=== PATIENT | female | born 2000 | race Two or more races ===

== ENCOUNTER 2018-01-09 23:47 | Emergency (ER) | payer OTHER ==
[~2018-01-09] VITALS: Ht 160 cm; Wt 60.8 kg
== END 2018-01-10 04:11 | disposition home or self-care (01) ==
LOC: ER 23:47
DX: M54.5 Low back pain (principal)

== ENCOUNTER 2020-01-27 16:58 | Emergency (ER) | payer OTHER ==
[~2020-01-27] VITALS: Ht 160 cm; Wt 62.6 kg
[2020-01-27] MEDS ORDERED: NITROFURANTOIN100 MG PO (21:09)
== END 2020-01-27 21:26 | disposition home or self-care (01) ==
LOC: ER 16:58
DX: O23.32 Infections of other parts of urinary tract in pregnancy, second trimester (principal); O26.892 Other specified pregnancy related conditions, second trimester; R10.2 Pelvic and perineal pain; Z3A.16 16 weeks gestation of pregnancy

== ENCOUNTER → 2020-03-26 | Outpatient (CLI) | payer OTHER ==
[~2020-03-26] MED LIST: NITROFURANTOIN100 MG PO
== END | disposition home or self-care (01) ==
LOC: PRENATAL 08:56
PROVIDERS: ATTEND Obstetrics & Gynecology Maternal & Fetal Medicine
DX: O35.0XX1 Maternal care for (suspected) central nervous system malformation in fetus, fetus 1 (principal); O35.3XX1 Maternal care for (suspected) damage to fetus from viral disease in mother, fetus 1; O98.512 Other viral diseases complicating pregnancy, second trimester; Z36.89 Encounter for other specified antenatal screening; Z3A.23 23 weeks gestation of pregnancy

== ENCOUNTER 2020-04-26 14:39 | Outpatient (CLI) | payer OTHER | END 2020-04-27 09:59 | disposition home or self-care (01) | LOC: OBS/DEL 14:39 | PROVIDERS: ATTEND Obstetrics & Gynecology | DX: O26.842 Uterine size-date discrepancy, second trimester (principal); Z3A.27 27 weeks gestation of pregnancy; O10.012 Pre-existing essential hypertension complicating pregnancy, second trimester ==

== ENCOUNTER 2020-07-01 18:37 | Inpatient (IN) | payer OTHER ==
[~2020-07-01] VITALS: Ht 160 cm; Wt 74.4 kg
[2020-07-01] MEDS ORDERED: PRENATAL TABLE1 EAC1 PO (18:38)
[2020-07-04] MEDS ORDERED: PRENATAL CAPLE1 EAC1 PO (12:09)
== END 2020-07-03 10:37 | disposition home or self-care (01) | DRG 833 ==
LOC: OBS/DEL 18:37 → LDR 22:29 → OB/GYN 07-02 16:56
PROVIDERS: ADMIT Obstetrics & Gynecology; ATTEND Obstetrics & Gynecology
PROC: 4A1HXFZ Monitoring of Products of Conception, Cardiac Rhythm, External Approach (ICD-10-PCS; principal; 2020-07-01)
DX: O23.43 Unspecified infection of urinary tract in pregnancy, third trimester (principal); Z3A.37 37 weeks gestation of pregnancy; Z20.822 Contact with and (suspected) exposure to COVID-19

== ENCOUNTER 2020-07-04 11:25 | Inpatient (IN) | payer OTHER ==
[~2020-07-04] VITALS: Ht 160 cm; Wt 74.4 kg
[~2020-07-04 11:25] MED LIST changes: +PRENATAL TABLE1 EAC1 PO
[2020-07-04] MEDS ORDERED: PRENATAL CAPLE1 EAC1 PO (12:09)
[2020-07-07] MEDS ORDERED: IBUPROFEN400 MG PO (13:57)
== END 2020-07-07 15:13 | disposition home or self-care (01) | DRG 807 ==
LOC: LDR 11:25 → OB/GYN 07-05 13:52
PROVIDERS: ADMIT Obstetrics & Gynecology; ATTEND Obstetrics & Gynecology
PROC: 10E0XZZ Delivery of Products of Conception, External Approach (ICD-10-PCS; principal; 2020-07-04)
PROC: 4A1HXFZ Monitoring of Products of Conception, Cardiac Rhythm, External Approach (ICD-10-PCS; 2020-07-04)
DX: O80 Encounter for full-term uncomplicated delivery (principal); Z37.0 Single live birth; Z3A.37 37 weeks gestation of pregnancy

== ENCOUNTER 2020-07-10 19:37 | Emergency (ER) | payer OTHER ==
[~2020-07-10] VITALS: Ht 160 cm; Wt 63.5 kg
[~2020-07-10 19:37] MED LIST changes: +IBUPROFEN400 MG PO; +PRENATAL CAPLE1 EAC1 PO
== END 2020-07-10 22:45 | disposition home or self-care (01) ==
LOC: ER 19:37
DX: I16.0 Hypertensive urgency (principal); I10 Essential (primary) hypertension

== ENCOUNTER 2021-07-15 08:16 | Outpatient (CLI) | payer OTHER | END 2021-07-15 13:44 | disposition home or self-care (01) | LOC: LAB 08:16 | PROVIDERS: ATTEND Preventive Medicine Occupational Medicine | DX: U07.1 COVID-19 (principal) ==

== ENCOUNTER 2021-12-03 08:00 | Outpatient (CLI) | payer OTHER | END 2021-12-03 08:05 | disposition home or self-care (01) | LOC: PPH VACUNA 08:00 | PROVIDERS: ATTEND Emergency Medicine Pediatric Emergency Medicine | DX: Z23 Encounter for immunization (principal) ==

== ENCOUNTER 2022-02-16 09:26 | Emergency (ER) | payer OTHER ==
[~2022-02-16] VITALS: Ht 165.1 cm; Wt 63.5 kg
[2022-02-16] MEDS ORDERED: TUSSIN DM SYRU118 ML PO (11:38)
[2022-02-16] MEDS ORDERED: ZITHROMAX500 MG PO (11:38)
== END 2022-02-16 12:22 | disposition home or self-care (01) ==
LOC: ER 09:26
DX: B34.8 Other viral infections of unspecified site (principal)

== ENCOUNTER 2022-06-05 08:23 | Emergency (ER) | payer OTHER ==
[~2022-06-05] VITALS: Ht 160 cm; Wt 69.9 kg
[~2022-06-05 08:23] MED LIST changes: +TUSSIN DM SYRU118 ML PO; +ZITHROMAX500 MG PO
== END 2022-06-05 08:58 | disposition home or self-care (01) ==
LOC: ER 08:23
DX: S69.82XA Other specified injuries of left wrist, hand and finger(s), initial encounter (principal); X58.XXXA Exposure to other specified factors, initial encounter; Y93.89 Activity, other specified; Y92.234 Operating room of hospital as the place of occurrence of the external cause; Y99.8 Other external cause status; Z91.010 Allergy to peanuts; Z91.018 Allergy to other foods; Z91.013 Allergy to seafood

== ENCOUNTER 2022-09-28 00:25 | Emergency (ER) | payer OTHER ==
[~2022-09-28] VITALS: Ht 160 cm; Wt 66.2 kg
== END 2022-09-28 03:09 | disposition home or self-care (01) ==
LOC: ER 00:25
DX: N94.6 Dysmenorrhea, unspecified (principal); Z91.010 Allergy to peanuts; Z91.013 Allergy to seafood; Z91.018 Allergy to other foods

== ENCOUNTER 2024-02-16 18:35 | Outpatient (CLI) | payer OTHER ==
[~2024-02-16] VITALS: Ht 160 cm; Wt 76.2 kg
[~2024-02-16 18:35] MED LIST changes: +PRENA1 TRUE CO1 EACH PO
[2024-02-16 19:05] VITALS: BP 135/88
[2024-02-16 20:08] LABS: HEMATOCRIT 35.8 % (36.0-45.00); HEMOGLOBIN 12.1 g/dL (12.0-15.00); MEAN CELL VOLUME 93.1 fL (80.00-100.00); MEAN CORPUSCULAR HEMOGLOBIN 31.4 pg (27.00-32.0); MEAN CORPUSCULAR HGB CONC 33.8 g/dl (32.0-36.0); PLATELET COUNT 212 K/uL (150-450); RED BLOOD COUNT 3.84 M/uL (4.00-6.00); RED CELL DISTRIBUTION WIDTH 14.8 % (11.5-14.5)
[2024-02-16 20:16] LABS: PH,URINE 6.5 (5.0-8.0); URINE APPEARANCE Clear; URINE BILIRRUBIN Negative (NEGATIVE); URINE BLOOD Negative; URINE COLOR Yellow; URINE GLUCOSE Negative (NEGATIVE); URINE KETONE Negative (NEGATIVE); URINE LEUKOCYTE Moderate; URINE NITRATE Negative; URINE PROTEIN Negative (NEGATIVE); URINE UROBILINOGEN 0.2 E.U./dl
[2024-02-16 20:20] LABS: URINE BACTERIA 1317.8 uL (0.0-1933); URINE EPITHELIAL CELLS 11.8 uL (0.0-38.8); URINE WBC 10.9 uL (0.0-23.2)
[2024-02-16 20:21] LABS: URINE CAST 0.29 uL (0.0-1.40); URINE RBC 1.1 uL (0.0-20.8)
[2024-02-16 20:25] LABS: INR < 0.93; PARTIAL THROMBOPLASTIN TIME 26.8 SECONDS (22.0-34.0); PROTHROMBIN TIME 9.8 SECONDS (9.0-11.5)
[2024-02-16 20:35] LABS: ALBUMIN 2.7 gm/dL (3.4-5.0); BILIRUBIN TOTAL 0.36 mg/dL (0.3-1.2); CALCIUM 9.4 mg/dL (8.5-10.1); CREATININE SERUM 0.68 mg/dL (0.55-1.02); GFR 105.42; GLOBULINA 3.9 G/DL (2.4-3.5); POTASSIUM 3.98 mEq/L (3.5-5.1); TOTAL PROTEIN 6.6 gm/dL (6.4-8.2)
[2024-02-16] MEDS ORDERED: ACETAMINOPHEN 500 MG GEL..CAP PO PRN (23:00)
[2024-02-16 23:31] VITALS: BP 116/75
[2024-02-17 03:18] VITALS: BP 128/87
[2024-02-17 07:18] VITALS: BP 118/84
[2024-02-17 11:04] VITALS: BP 131/95
== END 2024-02-17 11:02 | disposition home or self-care (01) ==
LOC: OBS/DEL 18:35 → LDR 18:35 → OBS/DEL 02-17 11:02 → EDSTATUS 03-03 12:30
PROVIDERS: ATTEND Obstetrics & Gynecology Gynecology
DX: O13.3 Gestational [pregnancy-induced] hypertension without significant proteinuria, third trimester (principal); Z3A.36 36 weeks gestation of pregnancy

== ENCOUNTER 2024-02-19 13:03 | Inpatient (IN) | payer OTHER ==
[~2024-02-19] VITALS: Ht 152.4 cm; Wt 74.4 kg
[2024-03-01] VITALS (8 sets, daily range): BP systolic 138–149; BP diastolic 80–99
[2024-03-01] MEDS ORDERED: RINGERS SOLUTION,LACTATED 1,000 ML IV ONE (14:00)
[2024-03-01] MEDS ORDERED: AMPICILLIN SODIUM 2,000 MG VIAL IV ONE (14:00)
[2024-03-01 14:43] LABS: HEMATOCRIT 37.8 % (36.0-45.00); HEMOGLOBIN 12.7 g/dL (12.0-15.00); MEAN CELL VOLUME 93.4 fL (80.00-100.00); MEAN CORPUSCULAR HEMOGLOBIN 31.4 pg (27.00-32.0); MEAN CORPUSCULAR HGB CONC 33.6 g/dl (32.0-36.0); PLATELET COUNT 263 K/uL (150-450); RED BLOOD COUNT 4.05 M/uL (4.00-6.00); RED CELL DISTRIBUTION WIDTH 14.6 % (11.5-14.5)
[2024-03-01] MEDS ORDERED: ERYTHROMYCIN BASE OPHT 1GM EACH TUBE OP ONE ×2 (14:47→15:30)
[2024-03-01] MEDS ORDERED: OXYTOCIN 20 UNITS/1000ML RL PIGGYBAG IV ONE (14:48)
[2024-03-01] MEDS ORDERED: LIDOCAINE HCL 1% 10ML VIAL ONE (14:48)
[2024-03-01] MEDS ORDERED: CHLORHEXIDINE GLUCONATE 120 ML BOTTLE TOP ONE ×2 (14:48→15:30)
[2024-03-01 15:03] LABS: INR < 0.93; PROTHROMBIN TIME 9.8 SECONDS (9.0-11.5)
[2024-03-01] MEDS ORDERED: OXYTOCIN 1,000 ML IV ONE (15:30)
[2024-03-01] MEDS ORDERED: IBUprofen 400 MG TABLET PO PRN (15:30)
[2024-03-01] MEDS ORDERED: CHLORHEXIDINE GLUCONATE 120 ML BOTTLE TOP SCH (15:30)
[2024-03-01] MEDS ORDERED: OXYTOCIN 1,000 ML IV SCH (15:30)
[2024-03-01 15:41] LABS: ALBUMIN 2.5 gm/dL (3.4-5.0); BILIRUBIN TOTAL 0.25 mg/dL (0.3-1.2); CALCIUM 9.3 mg/dL (8.5-10.1); CREATININE SERUM 0.62 mg/dL (0.55-1.02); GFR 117.28; POTASSIUM 3.93 mEq/L (3.5-5.1); TOTAL PROTEIN 6.5 gm/dL (6.4-8.2)
[2024-03-02 02:05] VITALS: BP 130/80
[2024-03-02 07:13] LABS: HEMATOCRIT 35.9 % (36.0-45.00); HEMOGLOBIN 12.4 g/dL (12.0-15.00); MEAN CELL VOLUME 93.7 fL (80.00-100.00); MEAN CORPUSCULAR HEMOGLOBIN 32.4 pg (27.00-32.0); MEAN CORPUSCULAR HGB CONC 34.6 g/dl (32.0-36.0); PLATELET COUNT 245 K/uL (150-450); RED BLOOD COUNT 3.83 M/uL (4.00-6.00); RED CELL DISTRIBUTION WIDTH 14.4 % (11.5-14.5)
[2024-03-02 09:06] VITALS: BP 150/96
[2024-03-02 09:12] VITALS: BP 150/96
[2024-03-02 09:53] VITALS: BP 135/72
[2024-03-02 20:33] VITALS: BP 140/85
[2024-03-03] VITALS: BP 130/88
[2024-03-03] MEDS ORDERED: LABETALOL HCL 200 MG TABLET PO SCH (07:30)
[2024-03-03 08:00] VITALS: BP 130/80
[2024-03-03 09:21] LABS: PH,URINE 5.5 (5.0-8.0); URINE APPEARANCE Clear; URINE BILIRRUBIN Negative (NEGATIVE); URINE BLOOD Trace; URINE COLOR Yellow; URINE GLUCOSE Negative (NEGATIVE); URINE KETONE Negative (NEGATIVE); URINE LEUKOCYTE Negative; URINE NITRATE Negative; URINE PROTEIN Negative (NEGATIVE); URINE UROBILINOGEN 0.2 E.U./dl
[2024-03-03 09:26] LABS: URINE EPITHELIAL CELLS 2.8 uL (0.0-38.8); URINE RBC 3.6 uL (0.0-20.8); URINE WBC 4.2 uL (0.0-23.2)
[2024-03-03 09:33] LABS: URINE BACTERIA 1.2 uL (0.0-1933)
[2024-03-03 09:37] LABS: HEMATOCRIT 35.8 % (36.0-45.00); HEMOGLOBIN 12.3 g/dL (12.0-15.00); MEAN CELL VOLUME 93.3 fL (80.00-100.00); MEAN CORPUSCULAR HGB CONC 34.3 g/dl (32.0-36.0); PLATELET COUNT 233 K/uL (150-450); RED BLOOD COUNT 3.84 M/uL (4.00-6.00); RED CELL DISTRIBUTION WIDTH 14.5 % (11.5-14.5)
[2024-03-03 10:19] LABS: ALBUMIN 2.5 gm/dL (3.4-5.0); BILIRUBIN TOTAL 0.22 mg/dL (0.3-1.2); CALCIUM 9.3 mg/dL (8.5-10.1); CREATININE SERUM 0.73 mg/dL (0.55-1.02); GFR 97.14; GLOBULINA 3.8 G/DL (2.4-3.5); POTASSIUM 3.9 mEq/L (3.5-5.1); TOTAL PROTEIN 6.3 gm/dL (6.4-8.2)
[2024-03-03 16:00] VITALS: BP 137/96
== END 2024-03-03 16:32 | disposition home or self-care (01) | DRG 807 ==
LOC: LDR 03-01 13:38 → OB/GYN 03-01 15:38
PROVIDERS: Obstetrics & Gynecology; Obstetrics & Gynecology Gynecology; ADMIT Obstetrics & Gynecology; ATTEND Obstetrics & Gynecology
PROC: 10E0XZZ Delivery of Products of Conception, External Approach (ICD-10-PCS; principal; 2024-03-01)
PROC: 0HQ9XZZ Repair Perineum Skin, External Approach (ICD-10-PCS; 2024-03-01)
PROC: 4A1HXCZ Monitoring of Products of Conception, Cardiac Rate, External Approach (ICD-10-PCS; 2024-03-01)
DX: O70.0 First degree perineal laceration during delivery (principal); Z37.0 Single live birth; Z3A.38 38 weeks gestation of pregnancy